=== PATIENT | female | born 1940 | race Caucasian/White ===

== ENCOUNTER → 2016-10-23 | Outpatient (CLI) | payer MEDICARE, BC ==
[~2016-10-23] MED LIST: AMITRIPTYLINE H25 M1 PO; AMITRIPTYLINE H50 M1 PO; ARTHITIS MED; ASPIRIN 81M81 MG/TA2 PO; ASTEPRO205.5 MCG/ NS; ATIVAN 1MG T1 MG/TAB PO; ATROVENT NASAL15 ML NS; CLARINEX 5MG5 MG PO; CLARINEX5 MG PO; CLARITIN D TAB1 TAB PO; DARVOCET-N-101 UDTAB PO; EPA/GLA1 SGL PO; FLEXERIL 1010 MG/TAB PO; LEVOTHYROXINE0.1 MG PO; LEVOXYL0.075 MG PO; LIPOFLAVONOID1 GEL PO; LYRICA200 MG PO; NAPROSYN500 MG PO; NAPROXEN ER500 MG PO; NEURONTIN600 MG/TAB PO; OXYCONTIN 10MG10 MG PO; PERCOCET 325 MG1 TA2 PO; PRO CAL PO; PROBIOTIC FORMU1 CAP PO; PROGESTERO PO; PROGESTERONE; REMERON30 MG PO; SYNTHROID0.05 MG/TA PO; TEGRETOL 2200 MG/TAB PO; TRI EST PO; TRI-EST; VISTARIL 2525 MG/CAP PO; VITAMIN D31000 IU PO; ZYDONE 5 PO; [UNRECOGNIZED DRUG - OTHER] OU; [UNRECOGNIZED DRUG - OTHER] PO; [UNRECOGNIZED DRUG - REMARK]; glucosamine
== END ==
LOC: MC.RAD 13:20
DX: Z12.31 Encounter for screening mammogram for malignant neoplasm of breast (principal); Z80.3 Family history of malignant neoplasm of breast

== ENCOUNTER → 2017-10-29 | Outpatient (CLI) | payer MEDICARE, BC | LOC: MC.RAD 13:57 | DX: Z12.31 Encounter for screening mammogram for malignant neoplasm of breast (principal) ==

== ENCOUNTER → 2018-03-16 | Outpatient (CLI) | payer MEDICARE, BC | LOC: COL.VAS 10:13 | DX: M48.061 Spinal stenosis, lumbar region without neurogenic claudication (principal); M46.86 Other specified inflammatory spondylopathies, lumbar region; M41.86 Other forms of scoliosis, lumbar region; I77.1 Stricture of artery ==

== ENCOUNTER 2018-08-19 10:17 | Emergency (ER) | payer MEDICARE, BC ==
[~2018-08-19] VITALS: Ht 167.6 cm; Wt 59.1 kg
[2018-08-19 10:19] VITALS: BP 144/80; TEMP 98.3
[2018-08-19 10:40] LABS: BASO % 0.2 % (0.0-2.0); GRAN # 7.4 (1.4-6.5); GRAN % 84.5 % (42.2-75.2); HEMATOCRIT 31.5 % (37.0-47.0); LYMPH # 0.6 (1.2-3.4); LYMPH % 7.1 % (20.0-51.0); MEAN CELL VOLUME 83 fl (80.0-100.0); MEAN CORPUSCULAR HEMOGLOBIN 29 pg (27.0-31.0); MEAN CORPUSCULAR HGB CONC 35 g/dl (33.0-37.0); MONO # 0.7 (0.1-0.6); MONO % 7.9 % (1.7-9.3); PLATELET COUNT 269 K/mm3 (130-400); RED BLOOD COUNT 3.81 M/mm3 (4.10-5.30); REDCELL DISTRIBUTION WIDTH-CV 13.4 % (11.5-14.5)
[2018-08-19 10:53] LABS: ALANINE AMINOTRANSFERASE 24 U/L (9-52); ALBUMIN 3.8 gm/dL (3.5-5.0); ALKALINE PHOSPHATASE 67 U/L (50-136); ANION GAP 8 mmol/L (7-16); AST,SGOT 54 U/L (15-37); BILIRUBIN,TOTAL 0.5 mg/dL (0.0-1.0); BLOOD UREA NITROGEN 23 mg/dL (7-17); CALCIUM 8.7 mg/dL (8.4-10.2); CARBON DIOXIDE 27 mmol/L (22-30); CHLORIDE 97 mmol/L (98-107); CREATININE, serum 0.53 mg/dL (0.52-1.25); GLUCOSE 104 mg/dL (74-106); POTASSIUM 3.1 mmol/L (3.4-5.0); SODIUM 132 mmol/L (137-145); TOTAL PROTEIN 6.2 gm/dL (6.4-8.2)
[2018-08-19] MEDS ORDERED: HCTZ 25MG TAB25 MG PO (10:54)
[2018-08-19] MEDS ORDERED: CELEXA 20MG20 MG/TAB PO (10:54)
[2018-08-19 10:55] LABS: C-REACTIVE PROTEIN < 0.5 mg/dL (0.0-0.9)
[2018-08-19] MEDS ORDERED: RESTORIL 1515 MG/CAP PO (10:55)
[2018-08-19] MEDS ORDERED: PERCOCET 325 MG1 TAB PO (10:56)
[2018-08-19] MEDS ORDERED: ZOFRAN 4MG T4 MG/TAB PO (11:50)
[2018-08-19 12:10] VITALS: PULSE 83
== END 2018-08-19 12:10 | disposition home or self-care (01) ==
LOC: COL.ER 10:17
PROVIDERS: Physician Assistant
DX: R19.7 Diarrhea, unspecified (principal); R11.10 Vomiting, unspecified; E03.9 Hypothyroidism, unspecified; Z90.49 Acquired absence of other specified parts of digestive tract; Z90.89 Acquired absence of other organs; Z88.0 Allergy status to penicillin; Z88.2 Allergy status to sulfonamides; Z88.5 Allergy status to narcotic agent; Z79.82 Long term (current) use of aspirin

== ENCOUNTER 2018-08-20 15:02 | Inpatient (IN) | payer MEDICARE, BC ==
[~2018-08-20] VITALS: Ht 167.6 cm; Wt 59.5 kg
[~2018-08-20 15:02] MED LIST changes: +CELEXA 20MG20 MG/TAB PO; +HCTZ 25MG TAB25 MG PO; +PERCOCET 325 MG1 TAB PO; +RESTORIL 1515 MG/CAP PO; +ZOFRAN 4MG T4 MG/TAB PO
[2018-08-20 16:30] LABS: BASO % 0.2 % (0.0-2.0); GRAN # 10.2 (1.4-6.5); GRAN % 82.5 % (42.2-75.2); HEMOGLOBIN 11.2 g/dl (12.5-16.0); LYMPH # 1.1 (1.2-3.4); LYMPH % 9.3 % (20.0-51.0); MEAN CELL VOLUME 84 fl (80.0-100.0); MEAN CORPUSCULAR HEMOGLOBIN 29 pg (27.0-31.0); MEAN CORPUSCULAR HGB CONC 35 g/dl (33.0-37.0); MEAN PLATELET VOLUME 11.6 fl (7.4-10.4); MONO # 0.9 (0.1-0.6); MONO % 7.6 % (1.7-9.3); PLATELET COUNT 272 K/mm3 (130-400); RED BLOOD COUNT 3.82 M/mm3 (4.10-5.30); REDCELL DISTRIBUTION WIDTH-CV 13.5 % (11.5-14.5)
[2018-08-20 16:39] LABS: ALANINE AMINOTRANSFERASE 31 U/L (9-52); ALBUMIN 4.2 gm/dL (3.5-5.0); ALKALINE PHOSPHATASE 69 U/L (50-136); ANION GAP 7 mmol/L (7-16); AST,SGOT 48 U/L (15-37); BILIRUBIN,TOTAL 0.4 mg/dL (0.0-1.0); BLOOD UREA NITROGEN 23 mg/dL (7-17); CALCIUM 9.4 mg/dL (8.4-10.2); CARBON DIOXIDE 29 mmol/L (22-30); CHLORIDE 99 mmol/L (98-107); CREATININE, serum 0.55 mg/dL (0.52-1.25); GLUCOSE 91 mg/dL (74-106); SODIUM 134 mmol/L (137-145); TOTAL PROTEIN 6.6 gm/dL (6.4-8.2)
[2018-08-20 16:40] LABS: C-REACTIVE PROTEIN < 0.5 mg/dL (0.0-0.9); POTASSIUM 2.7 mmol/L (3.4-5.0)
[2018-08-20 16:49] LABS: HEMATOCRIT 32.1 % (37.0-47.0)
[2018-08-20 17:36] LABS: INR 1.4 (0.8-3.0); PROTHROMBIN TIME 15.7 SECONDS (9.7-12.8)
[2018-08-20 17:39] LABS: PARTIAL THROMBOPLASTIN TIME 59.4 SECONDS (26.0-37.0)
[2018-08-20 17:54] LABS: PHOSPHOROUS 1.6 mg/dL (2.5-4.5)
[2018-08-20 20:00] VITALS: BP 134/69; PULSE 72; TEMP 98.4
--- NOTE | 2018-08-20 23:37 | NUR ---
PT ARRIVED VIA GURNEY FROM ER BY SELF. PT ADVISES THAT SHE DOES NOT HAVE ANY FAMILY EXCEPT HER DAUGHTER IN [place] AND THAT SHE LIVES ALONE. PT STATES THAT SHE IS ALWAYS FALLING. PT'S GAIT IS UNSTEADY EVEN WITH WALKER. PT PLACED IN YELLOW GOWN AND BED ALARM ON. PT HAS TWO OPEN AREAS ON HER COCCYX AREA. BLE ARE COLD TO TOUCH AND HAS ULCERS AROUND THE TOES AND SIDE OF FOOT. PT HAS SCRATCH MARTÍNEZ ALL OVER UPPER EXTREMIES. PT IS A/O X4. CALL LIGHT WITHIN REACH.
[2018-08-20 23:58] VITALS: BP 144/79; PULSE 73; TEMP 98.6
[2018-08-21] VITALS (7 sets, daily range): BP systolic 130–171; BP diastolic 63–81; PULSE 60–73; TEMP 97–98.6
--- NOTE | 2018-08-21 04:05 | NUR ---
PT IS SOFTLY SNORING WITH RESP EVEN AND UNLABORED AND NO S/S OF PAIN OR DISCOMFORT NOTED. PT HAD USED THE BEDSIDE COMMODE AROUND 0100. PT'S GAIT VERY UNSTEADY AND ALMOST FELL. PT STATES THAT SHE FALLS A LOT AT HOME. PT HAS BEEN SLEEPING WELL SINCE THEN. CALL LIGHT IN REACH AND BED ALARM IS ON.
--- NOTE | 2018-08-21 07:46 | NUR ---
PATIENT ASSESSMENT COMPLETED. SHE IS LESS NAUSEATED THIS MORNING THAN SHE HAS BEEN. DENIES NEED FOR MEDICATIONS. SHE WOULD LIKE SOME TOAST AT THIS TIME, WE WILL TALK WITH DOCTOR WHEN THEY MAKE ROUNDS. SHE IS OK WITH THIS. DENIES OTHER NEEDS.
[2018-08-21 08:06] LABS: MEAN CELL VOLUME 87 fl (80.0-100.0); MEAN CORPUSCULAR HGB CONC 34 g/dl (33.0-37.0); MEAN PLATELET VOLUME 11.6 fl (7.4-10.4); PLATELET COUNT 231 K/mm3 (130-400); RED BLOOD COUNT 3.19 M/mm3 (4.10-5.30)
[2018-08-21 08:09] LABS: HEMATOCRIT 27.6 % (37.0-47.0); HEMOGLOBIN 9.3 g/dl (12.5-16.0); MEAN CORPUSCULAR HEMOGLOBIN 29 pg (27.0-31.0)
[2018-08-21 08:14] LABS: CALCIUM 8.4 mg/dL (8.4-10.2); CREATININE, serum 0.51 mg/dL (0.52-1.25); POTASSIUM 4.4 mmol/L (3.4-5.0)
[2018-08-21 08:28] LABS: BAND 3 % (0-10); LYMPHOCYTE 7 % (20.0-51.0); NEUTROPHILS 89 % (42.0-75.2); PLATELET ESTIMATE NORMAL (NORMAL)
[2018-08-21 13:24] LABS: HEMATOCRIT 26.7 % (37.0-47.0); HEMOGLOBIN 9.1 g/dl (12.5-16.0)
--- NOTE | 2018-08-21 13:57 | NUR ---
SW met with patient to discuss discharge planning. She reports she lives alone here in [place] and uses a walker to get around. She has neuropathy and reports falls from that but didn't feel that PT and OT helped her in the past. She says the SW she met with in the ER gave her information on some angencies that could help if she needed it. Patients daughter Jose R is coming from [place] to pick her up when she gets discharged but she normally drives herself. Patients PCP is Dr Gabe Sheikh and she obtains her medications from [facility]. SW will continue to follow.
--- NOTE | 2018-08-21 17:55 | NUR ---
PATIENT UP IN BED CHICKEN BROTH HAS BEEN ORDERED. BOWEL PREP STARTED.
--- NOTE | 2018-08-21 18:00 | NUR ---
PATIENT IS DRINKING BOWEL PREP WITH NOW. SIPPING ON CHICKEN BROTH ALSO. NO OTHER NEEDS AT THIS TIME.
--- NOTE | 2018-08-21 20:30 | NUR ---
Shift assessment complete. Pt resting in bed, awake, a&o c occasional forgetfull/confused statements. Pt c/o nausea p bowel prep et increased pain chronic pain to back et legs since getting up to commode more frequently. PRN pain et antiemetic meds admin c HS meds. Pt denies any other c/o. Pt experiencing frequent, large, liquid stools at this time. INT patent. Tele in place. Pt denies further needs at this time. Call light in reach, bed alarm on. Will continue to monitor.
[2018-08-22] VITALS (8 sets, daily range): BP systolic 116–157; BP diastolic 58–72; PULSE 59–73; TEMP 97.2–98
[2018-08-22 07:32] LABS: CALCIUM 8.8 mg/dL (8.4-10.2); CREATININE, serum 0.52 mg/dL (0.52-1.25)
[2018-08-22 07:59] LABS: BAND 7 % (0-10); BASOPHIL 2 % (0-2); EOSINOPHIL 4 % (0-4); LYMPHOCYTE 8 % (20.0-51.0); METAMYELOCYTE 1 % (0-0); NEUTROPHILS 74 % (42.0-75.2)
[2018-08-22 08:00] LABS: ANISOCYTOSIS 1+; HYPOCHROMIA 1+; PLATELET ESTIMATE NORMAL (NORMAL)
--- NOTE | 2018-08-22 08:19 | NUR ---
Patient is alert and oriented, sitting up in bed. Assessment complete. Reports mild pain, denies need for medication at this time. Bowel prep complete with liquid stools this AM. Fall risk precautions in place. Denies N/V, remains NPO. Pre-op fluids started and checklist complete. VSS. Patient transferred to OR by KASIA Villegas at this time.
[2018-08-22 08:28] LABS: HEMATOCRIT 27.4 % (37.0-47.0); HEMOGLOBIN 9.1 g/dl (12.5-16.0); MEAN CELL VOLUME 87 fl (80.0-100.0); MEAN CORPUSCULAR HEMOGLOBIN 29 pg (27.0-31.0); MEAN CORPUSCULAR HGB CONC 33 g/dl (33.0-37.0); MEAN PLATELET VOLUME 11.2 fl (7.4-10.4); PLATELET COUNT 240 K/mm3 (130-400); RED BLOOD COUNT 3.16 M/mm3 (4.10-5.30); REDCELL DISTRIBUTION WIDTH-CV 14.2 % (11.5-14.5)
--- NOTE | 2018-08-22 09:20 | NUR ---
Patient is alert, oriented to self and situation. Some conversation is confused. Tolerating diet, denies N/V. IV fluids running. Patient given brief for comfort. No incontinence at this time. Minor skin breakdown noticed, barrier cream applied. VSS. Call light within reach and will continue to monitor.
--- NOTE | 2018-08-22 10:58 | NUR ---
Patient is resting in bed. VSS. Tolerating diet well. Denies N/V after eating several pieces of toast. Patient assisted to the commode to urinate with standby assistance and walker. Wipes used and barrier cream applied. Fall risk precautions in place. Call light within reach and will continue to monitor.
[2018-08-22] MEDS ORDERED: PRILOSEC 20MG20 MG PO (14:10)
--- NOTE | 2018-08-22 15:34 | NUR ---
Discharge instructions reviewed with patient and daughter. Denies any questions and verbalizes understanding of discharge instructions. IV removed, no complications. Meds sent to pharmacy. Patient escorted out by hospital staff.
== END 2018-08-22 15:36 | disposition home or self-care (01) | DRG 379 ==
LOC: COL.ER 15:02 → MEDICAL 17:11 → COL.ER 17:11 → MEDICAL 08-22 03:00
PROVIDERS: Emergency Medicine; Surgery; ADMIT Internal Medicine
PROC: 0DJD8ZZ Inspection of Lower Intestinal Tract, Via Natural or Artificial Opening Endoscopic (ICD-10-PCS; principal; 2018-08-22 08:30)
PROC: 0DB68ZX Excision of Stomach, Via Natural or Artificial Opening Endoscopic, Diagnostic (ICD-10-PCS; 2018-08-22 08:30)
DX: K25.4 Chronic or unspecified gastric ulcer with hemorrhage (principal); K52.9 Noninfective gastroenteritis and colitis, unspecified; K57.31 Diverticulosis of large intestine without perforation or abscess with bleeding; D50.0 Iron deficiency anemia secondary to blood loss (chronic); G62.9 Polyneuropathy, unspecified; E87.6 Hypokalemia; F41.8 Other specified anxiety disorders; E86.0 Dehydration; I73.9 Peripheral vascular disease, unspecified; Z95.820 Peripheral vascular angioplasty status with implants and grafts; I10 Essential (primary) hypertension
CPT/HCPCS: 99222-AI; 99232-AI; C9113; J2250; J2405; J2704; J3010; J3480; J7030; J7040

== ENCOUNTER → 2018-11-09 | Outpatient (CLI) | payer MEDICARE, BC ==
[~2018-11-09] MED LIST changes: +PRILOSEC 20MG20 MG PO
== END ==
LOC: MC.RAD 15:04
DX: Z12.31 Encounter for screening mammogram for malignant neoplasm of breast (principal)

== ENCOUNTER 2019-10-31 16:56 | Emergency (ER) | payer MEDICARE, BC ==
[~2019-10-31] VITALS: Ht 170.2 cm; Wt 55.0 kg
[2019-10-31 17:00] VITALS: TEMP 98.5
[2019-10-31 18:25] VITALS: BP 111/58; PULSE 72
== END 2019-10-31 18:25 | disposition home or self-care (01) ==
LOC: COL.ER 16:56
DX: S01.01XA Laceration without foreign body of scalp, initial encounter (principal); R40.2412 Glasgow coma scale score 13-15, at arrival to emergency department; I10 Essential (primary) hypertension; Z79.82 Long term (current) use of aspirin; W01.0XXA Fall on same level from slipping, tripping and stumbling without subsequent striking against object, initial encounter; Y92.009 Unspecified place in unspecified non-institutional (private) residence as the place of occurrence of the external cause

== ENCOUNTER → 2019-11-15 | Outpatient (CLI) | payer MEDICARE, BC | LOC: MC.RAD 11:05 | DX: Z12.31 Encounter for screening mammogram for malignant neoplasm of breast (principal) ==

== ENCOUNTER → 2020-02-20 | Outpatient (CLI) | payer MEDICARE, BC | LOC: ZCOL.LAB 14:35 | DX: Z01.812 Encounter for preprocedural laboratory examination (principal); I73.9 Peripheral vascular disease, unspecified; Z20.828 Contact with and (suspected) exposure to other viral communicable diseases ==

== ENCOUNTER → 2020-02-23 | Outpatient (CLI) | payer MEDICARE, BC | LOC: ZCOL.LAB 16:26 | DX: Z20.828 Contact with and (suspected) exposure to other viral communicable diseases (principal) ==

== ENCOUNTER → 2020-02-24 | Outpatient (CLI) | payer MEDICARE, BC ==
[2020-02-24 11:03] LABS: HEMATOCRIT 38.9 % (37.0-47.0); HEMOGLOBIN 12.6 g/dl (12.5-16.0); MEAN CELL VOLUME 88 fl (80.0-100.0); MEAN CORPUSCULAR HEMOGLOBIN 29 pg (27.0-31.0); MEAN CORPUSCULAR HGB CONC 32 g/dl (33.0-37.0); MEAN PLATELET VOLUME 11.2 fl (7.4-10.4); PLATELET COUNT 255 K/mm3 (130-400); RED BLOOD COUNT 4.41 M/mm3 (4.10-5.30); REDCELL DISTRIBUTION WIDTH-CV 14.8 % (11.5-14.5)
[2020-02-24 11:11] LABS: CALCIUM 9.7 mg/dL (8.4-10.2); CREATININE, serum 0.74 (0.52-1.25); POTASSIUM 3.6 mmol/L (3.4-5.0)
== END ==
LOC: COL.LAB 10:28
PROVIDERS: Internal Medicine Interventional Cardiology
DX: Z01.812 Encounter for preprocedural laboratory examination (principal); I25.10 Atherosclerotic heart disease of native coronary artery without angina pectoris; I73.9 Peripheral vascular disease, unspecified; Z20.828 Contact with and (suspected) exposure to other viral communicable diseases

== ENCOUNTER 2020-10-28 11:59 | Emergency (ER) | payer MEDICARE, BC ==
[~2020-10-28] VITALS: Ht 167.6 cm; Wt 63.6 kg
[2020-10-28 12:36] VITALS: BP 159/74; TEMP 98.8
[2020-10-28 15:44] VITALS: PULSE 76
--- NOTE | 2020-10-29 10:21 | NUR ---
Respiratory Therapy Technician consulted for the patient. She discharged for the ED over the weekend. SW attempted to contact the patient to follow up, left message.
--- NOTE | 2020-10-29 14:29 | NUR ---
Quebracho Tanner received a phone call from Lory at [facility] who advised she received a partial referral for patient over the weekend and requested more information. SW faxed clinical information from ED visit.
== END 2020-10-28 15:48 | disposition home or self-care (01) ==
LOC: COL.ER 11:59
DX: S42.414A Nondisplaced simple supracondylar fracture without intercondylar fracture of right humerus, initial encounter for closed fracture (principal); Z88.0 Allergy status to penicillin; Z88.2 Allergy status to sulfonamides; Z88.6 Allergy status to analgesic agent; Z88.1 Allergy status to other antibiotic agents; W19.XXXA Unspecified fall, initial encounter

== ENCOUNTER → 2020-12-05 | Outpatient (CLI) | payer MEDICARE, BC | LOC: MC.RAD 09:45 | DX: Z12.31 Encounter for screening mammogram for malignant neoplasm of breast (principal); N64.89 Other specified disorders of breast ==

== ENCOUNTER → 2020-12-14 | Outpatient (CLI) | payer MEDICARE, BC | LOC: MC.RAD 09:58 | DX: N63.21 Unspecified lump in the left breast, upper outer quadrant (principal); R92.2 Inconclusive mammogram; N64.89 Other specified disorders of breast ==

== ENCOUNTER → 2020-12-19 | Outpatient (CLI) | payer MEDICARE, BC | LOC: MC.RAD 09:45 | DX: R92.8 Other abnormal and inconclusive findings on diagnostic imaging of breast (principal); Z98.82 Breast implant status ==

== ENCOUNTER → 2022-02-03 | Outpatient (CLI) | payer MEDICARE, BC | LOC: MC.RAD 10:22 | DX: Z12.31 Encounter for screening mammogram for malignant neoplasm of breast (principal) ==